=== PATIENT | female | born 1960 | race Native Hawaiian/Other Pacific Islander ===

== ENCOUNTER 2017-01-09 09:35 | Outpatient (CLI) | payer OTHER | END 2017-01-09 17:50 | disposition home or self-care (01) | LOC: MAMMO 09:35 | DX: Z12.31 Encounter for screening mammogram for malignant neoplasm of breast (principal) | CPT/HCPCS: G0202-TC ==

== ENCOUNTER 2018-03-23 10:58 | Outpatient (CLI) | payer OTHER | END 2018-03-23 19:47 | disposition home or self-care (01) | LOC: MAMMO 10:58 | DX: Z12.31 Encounter for screening mammogram for malignant neoplasm of breast (principal) ==

== ENCOUNTER 2019-05-19 18:46 | Outpatient (CLI) | payer OTHER ==
[2019-05-19 19:48] LABS: POTASSIUM 4.3 mmol/L (3.6-5.2)
[2019-05-19 19:49] LABS: PLATELET COUNT 153 K/uL (152-353)
== END 2019-05-19 22:05 | disposition home or self-care (01) ==
LOC: LAB 18:46
PROVIDERS: Family Medicine
DX: E11.9 Type 2 diabetes mellitus without complications (principal); E78.5 Hyperlipidemia, unspecified
CPT/HCPCS: 80053; 80061; 83036; 84439; 84443; 84481; 85027

== ENCOUNTER 2019-06-15 09:34 | Outpatient (CLI) | payer OTHER | END 2019-06-15 20:55 | disposition home or self-care (01) | LOC: US 09:34 | DX: R74.8 Abnormal levels of other serum enzymes (principal) ==

== ENCOUNTER 2019-12-09 09:05 | Outpatient (CLI) | payer OTHER | END 2019-12-09 22:22 | disposition home or self-care (01) | LOC: MAMMO 09:05 | DX: Z12.31 Encounter for screening mammogram for malignant neoplasm of breast (principal); Z12.11 Encounter for screening for malignant neoplasm of colon ==

== ENCOUNTER 2020-09-04 13:52 | Outpatient (CLI) | payer OTHER | END 2020-09-04 23:16 | disposition home or self-care (01) | LOC: LABW 13:52 | PROVIDERS: ATTEND Nurse Practitioner Family | DX: E03.8 Other specified hypothyroidism (principal) | CPT/HCPCS: 36415; 84443 ==

== ENCOUNTER 2021-01-29 11:43 | Outpatient (CLI) | payer OTHER | END 2021-01-29 21:03 | disposition home or self-care (01) | LOC: RAD 11:43 | PROVIDERS: ATTEND Nurse Practitioner Family | DX: R14.0 Abdominal distension (gaseous) (principal); R19.8 Other specified symptoms and signs involving the digestive system and abdomen; R10.9 Unspecified abdominal pain ==

== ENCOUNTER 2021-11-12 16:05 | Outpatient (CLI) | payer OTHER ==
[2021-11-12 17:37] LABS: PLATELET COUNT 174 K/uL (152-353)
== END 2021-11-12 19:09 | disposition home or self-care (01) ==
LOC: LAB 16:05
PROVIDERS: ATTEND Nurse Practitioner Family
DX: E78.5 Hyperlipidemia, unspecified (principal); K21.9 Gastro-esophageal reflux disease without esophagitis; G25.81 Restless legs syndrome; I10 Essential (primary) hypertension; E03.9 Hypothyroidism, unspecified; E11.65 Type 2 diabetes mellitus with hyperglycemia; Z79.899 Other long term (current) drug therapy; G62.9 Polyneuropathy, unspecified; G47.00 Insomnia, unspecified; F32.9 Major depressive disorder, single episode, unspecified
CPT/HCPCS: 36415; 80053; 80061; 82306; 82607; 83036; 84439; 84443; 85027

== ENCOUNTER 2022-07-23 09:37 | Outpatient (CLI) | payer OTHER | END 2022-07-23 19:15 | disposition home or self-care (01) | LOC: MAMMO 09:37 | PROVIDERS: ATTEND Nurse Practitioner Family | DX: Z12.31 Encounter for screening mammogram for malignant neoplasm of breast (principal) ==

== ENCOUNTER 2023-08-25 15:44 | Outpatient (CLI) | payer OTHER | END 2023-08-25 19:23 | disposition home or self-care (01) | LOC: RAD 15:44 | PROVIDERS: ATTEND Nurse Practitioner Family | DX: M79.672 Pain in left foot (principal); W19.XXXA Unspecified fall, initial encounter ==